=== PATIENT | female | born 1945 | race Caucasian/White ===

== ENCOUNTER 2019-03-05 16:54 | Emergency (ER) | payer OTHER ==
[~2019-03-05] VITALS: Ht 160 cm; Wt 71.7 kg
[~2019-03-05 16:54] MED LIST: LEVOXYL100 MCG PO; PROPRANOLOL 1010 M1 PO
[2019-03-05] MEDS ORDERED: TRAMADOL 50 MG50 MG PO (18:41)
[2019-03-05] MEDS ORDERED: DOXYCYCLINE 10100 MG PO (18:41)
[2019-03-05 19:22] VITALS: BP 145/85
== END 2019-03-05 19:22 | disposition home or self-care (01) ==
LOC: M.ERS 16:54
DX: S61.412A Laceration without foreign body of left hand, initial encounter (principal); I10 Essential (primary) hypertension; Z90.49 Acquired absence of other specified parts of digestive tract; Z90.710 Acquired absence of both cervix and uterus; E89.0 Postprocedural hypothyroidism; Z90.13 Acquired absence of bilateral breasts and nipples; Z85.828 Personal history of other malignant neoplasm of skin; Z88.0 Allergy status to penicillin; Z88.1 Allergy status to other antibiotic agents; Z91.040 Latex allergy status; W26.0XXA Contact with knife, initial encounter; Y93.89 Activity, other specified; Y92.89 Other specified places as the place of occurrence of the external cause; Y99.8 Other external cause status

== ENCOUNTER 2021-08-29 10:41 | Emergency (ER) | payer MEDICARE ==
[~2021-08-29] VITALS: Ht 160 cm; Wt 72.6 kg
[~2021-08-29 10:41] MED LIST changes: +DOXYCYCLINE 10100 MG PO; +TRAMADOL 50 MG50 MG PO
[2021-08-29 11:34] VITALS: BP 169/105
== END 2021-08-29 11:35 | disposition home or self-care (01) ==
LOC: M.ERS 10:41
DX: T63.461A Toxic effect of venom of wasps, accidental (unintentional), initial encounter (principal); I10 Essential (primary) hypertension; Z98.890 Other specified postprocedural states; Z90.710 Acquired absence of both cervix and uterus; Z90.49 Acquired absence of other specified parts of digestive tract; Z79.899 Other long term (current) drug therapy; Z91.030 Bee allergy status; Z91.040 Latex allergy status; Z88.1 Allergy status to other antibiotic agents; Z88.0 Allergy status to penicillin; Z88.5 Allergy status to narcotic agent; Y92.89 Other specified places as the place of occurrence of the external cause